=== PATIENT | male | born 1945 | race Caucasian/White ===

== ENCOUNTER 2022-07-15 07:10 | Outpatient (CLI) | payer MEDICARE, OTHER ==
[2022-07-15 15:19] LABS: BASOPHILS # (AUTO) 0.1 10^3/uL (0.0-0.1); BASOPHILS % (AUTO) 1.3 %; EOSINOPHILS # (AUTO) 0.1 10^3/uL (0.0-0.7); HCT - HEMATOCRIT 44.6 % (42.0-52.0); HGB - HEMOGLOBIN 14.7 g/dL (14.0-18.0); LYMPHOCYTES # (AUTO) 2.1 10^3/uL (1.5-3.5); LYMPHOCYTES % (AUTO) 38.6 %; MEAN CORPUSCULAR HEMOGLOBIN 30.8 pg (27.0-31.0); MEAN CORPUSCULAR VOLUME 93.5 fL (80.0-94.0); MONOCYTES # (AUTO) 0.4 10^3/uL (0.0-1.0); MONOCYTES % (AUTO) 8.1 %; NEUTROPHILS # (AUTO) 2.7 10^3/uL (1.5-6.6); NEUTROPHILS % (AUTO) 49.4 %; PLT - PLATELET COUNT 194 10^3/uL (130-450); RED BLOOD COUNT 4.77 10^6/uL (4.70-6.10); RED CELL DISTRIBUTION WIDTH 12.9 % (12.0-15.0); WHITE BLOOD COUNT 5.4 x10^3/uL (4.8-10.8)
[2022-07-15 16:06] LABS: THYROID STIMULATING HORMONE 2.69 uIU/mL (0.34-5.60)
[2022-07-15 16:08] LABS: FREE T3 3.36 pg/mL (2.5-3.9); FREE T4 (FREE THYROXINE) 0.76 ng/dL (0.58-1.64)
[2022-07-15 16:10] LABS: PSA TOTAL 3.224 ng/mL (0.000-2.000)
[2022-07-15 16:11] LABS: CRP HIGH SENSITIVITY 1.5 mg/L
[2022-07-15 16:12] LABS: ALBUMIN 4.3 g/dL (3.2-5.5); ALKALINE PHOSPHATASE 56 IU/L (42-121); ALT ALANINE AMINOTRANSFERASE 67 IU/L (10-60); AST ASPARTATE AMINOTRANSFERASE 46 IU/L (10-42); BILIRUBIN,TOTAL 0.3 mg/dL (0.2-1.0); BUN - BLOOD UREA NITROGEN 23 mg/dL (6-20); CARBON DIOXIDE - CO2 28 mmol/L (21-32); CHLORIDE 102 mmol/L (101-111); CHOL/HDL RATIO 6.4 (<5.0); CHOLESTEROL 249 mg/dL; GFR - MDRD 73 (>89); GLUCOSE 132 mg/dL (70-100); HDL CHOLESTEROL 39 mg/dL; LDL CHOLESTEROL,CALCULATED 183 mg/dL; LDL/HDL RATIO 4.7 (<3.6); POTASSIUM 3.9 mmol/L (3.5-5.0); SODIUM 138 mmol/L (135-145); TOTAL PROTEIN 8.5 g/dL (6.7-8.2); TRIGLYCERIDES 133 mg/dL; VLDL CHOLESTEROL 27 mg/dL
[2022-07-15 16:37] LABS: PSA FREE 1.597 ng/mL (0.16-2.81)
[2022-07-15 20:44] LABS: ESTIMATED AVERAGE GLUCOSE 143 mg/dL (70-100); HEMOGLOBIN A1c% 6.6 % (4.27-6.07)
[2022-07-16 04:08] LABS: VITAMIN D 25-HYDROXY 44.4 ng/mL (30.0-100.0)
[2022-07-16 07:10] LABS: ESTRADIOL 16.7 pg/mL (7.6-42.6); SEX HORM BINDING GLOB SERUM 82.9 nmol/L (19.3-76.4)
[2022-07-16 23:08] LABS: DHEA-SULFATE 49.4 ug/dL (20.8-226.4)
[2022-07-24 19:07] LABS: 1,25-DIHYDROXY VITAMIN D-2 <10 pg/mL (.); 1,25-DIHYDROXY VITAMIN D-3 22 pg/mL (.); TOTAL 1,25-DIHYDROXYVITAMIN D 24 pg/mL (.)
== END 2022-07-15 14:38 | disposition home or self-care (01) ==
LOC: LAB.S 07:10
PROVIDERS: ATTEND Preventive Medicine Public Health & General Preventive Medicine
DX: R97.20 Elevated prostate specific antigen [PSA] (principal); N40.0 Benign prostatic hyperplasia without lower urinary tract symptoms; R53.82 Chronic fatigue, unspecified; E55.9 Vitamin D deficiency, unspecified; E27.9 Disorder of adrenal gland, unspecified; E16.2 Hypoglycemia, unspecified; D68.4 Acquired coagulation factor deficiency; T38.5X5A Adverse effect of other estrogens and progestogens, initial encounter; E78.00 Pure hypercholesterolemia, unspecified; M54.30 Sciatica, unspecified side; E03.9 Hypothyroidism, unspecified; M17.9 Osteoarthritis of knee, unspecified; M19.029 Primary osteoarthritis, unspecified elbow; M19.019 Primary osteoarthritis, unspecified shoulder; M19.92 Post-traumatic osteoarthritis, unspecified site; M16.9 Osteoarthritis of hip, unspecified; D51.9 Vitamin B12 deficiency anemia, unspecified
CPT/HCPCS: 36415; 80053; 80061; 81599; 82172; 82306; 82627; 82652; 82670; 82728; 83036; 83090; 83615; 83625; 83695; 83721; 84153; 84154; 84270; 84410; 84439; 84443; 84481; 85025; 85379; 85384; 85651; 86141

== ENCOUNTER 2023-11-22 06:35 | Outpatient (CLI) | payer MEDICARE, OTHER ==
--- NOTE | 2023-11-22 13:24 | Ultrasound Report ---
PROCEDURE: Abdomen Complete INDICATIONS: RISING PSA FOL TREATMENT FOR MALIGNANT NEOPLASM OF TECHNIQUE: Real-time scanning was performed of the abdominal and retroperitoneal organs, with image documentatio n. COMPARISON: None. FINDINGS: Liver: Liver is normal in size and homogeneous in echotexture. Gallbladder: Diffuse wall thickening measuring 4 mm, nonspecific finding. No stones or pain on examin ation or pericholecystic fluid. Biliary ducts: Intrahepatic bile ducts are non-dilated. Extrahepatic bile duct caliber measures 3 m m. Normal is 6-7 mm or less in diameter, or 10 mm or less post-cholecystectomy. Pancreas: Visualized portions of the pancreas are sonographically normal. Spleen: Spleen is normal in size and homogeneous in echotexture. Kidneys: Kidneys are normal in size and echotexture. Right kidney measures 11.7 cm long; left kidne y measures 11.9 cm long. No hydronephrosis or nephrolithiasis. No solid masses. No complex renal cy stic lesions which require follow-up. Aorta: Visualized aorta is normal in caliber at less than 3 cm. Distal aorta not visualized. Iliacs: Proximal common iliac arteries are not visualized secondary to overlying bowel gas. IVC: Intrahepatic inferior vena cava is patent. Miscellaneous: No free abdominal fluid. IMPRESSION: Nonspecific gallbladder wall thickening without stones or pain on examination. Otherwise unremarkable abdominal ultrasound. Reviewed by: Ivan Vernon MD on 11/22/2023 1:23 PM PDT Approved by: Ivan Vernon MD on 11/22/2023 1:23 PM PDT Station ID: [id number]
== END 2023-11-22 06:36 | disposition home or self-care (01) ==
LOC: DI 06:35
PROVIDERS: ATTEND Preventive Medicine Public Health & General Preventive Medicine
DX: K82.9 Disease of gallbladder, unspecified (principal)

== ENCOUNTER 2023-12-08 09:46 | Outpatient (CLI) | payer MEDICARE, OTHER ==
--- NOTE | 2023-12-08 16:44 | DEXA Report ---
PROCEDURE: Dexa Spine and/or Hip INDICATIONS: USE OF AGNT AFF ESTROG RECPT ESTROG LEVELS TECHNIQUE: Dual energy x-ray absorptiometry (DXA) was performed on a [employer] System. Regions measur ed are the AP Spine, femoral neck, and if needed forearm. COMPARISON: None FINDINGS: Lumbar Spine: Bone Mineral Density: 1.3 (L1-L2) g/cm/cm,T score: 0.9. Left Femoral Neck: Bone Mineral Density: 0.91 g/cm/cm, T score: -1.2. Left Hip: Bone Mineral Density: 0.89 g/cm/cm,T score: -1.5. FRAX risk factors: Family history, rheumatoid arthritis 10 year risk of major osteoporotic fracture: 16.8% major osteoporotic fracture = hip, clinical vertebral, proximal humerus, distal forearm 10 year risk of hip fracture: 11.1% (T score greater or equal to -1.0: NORMAL) (T score from -1.1 to -2.4: OSTEOPENIA) (T score less than or equal to -2.5 to: OSTEOPOROSIS) Impression: By WHO criteria, this patient has low bone density (osteopenia). Elevated fracture risk as above. Patients with diagnosis of osteoporosis or osteopenia should have regular bone mineral density assess ment. For those eligible for Medicare, routine testing is allowed once every 2 years. Testing frequ ency can be increased for patients who have rapidly progressing disease or for those who are receivin g medical therapy to restore bone mass. Reviewed by: Ceasar Gonzalez MD on 12/08/2023 4:43 PM PDT Approved by: Ceasar Gonzalez MD on 12/08/2023 4:43 PM PDT Station ID: [id number]
== END 2023-12-08 09:47 | disposition home or self-care (01) ==
LOC: DI 09:46
PROVIDERS: ATTEND Internal Medicine Hematology & Oncology
DX: M85.89 Other specified disorders of bone density and structure, multiple sites (principal)